=== PATIENT | male | born 1955 | race Caucasian/White ===

== ENCOUNTER → 2016-11-11 | Outpatient (CLI) | payer MEDICARE, OTHER | LOC: US 07:41 | DX: R10.0 Acute abdomen (principal) | CPT/HCPCS: 76705 ==

== ENCOUNTER → 2021-12-17 | Outpatient (CLI) | payer MEDICARE, OTHER | LOC: HEART 5 10:54 | DX: J45.30 Mild persistent asthma, uncomplicated (principal) | CPT/HCPCS: 94010; 95012 ==

== ENCOUNTER → 2021-12-17 | Outpatient (CLI) | payer MEDICARE | LOC: RAD 11:58 | DX: J45.30 Mild persistent asthma, uncomplicated (principal) | CPT/HCPCS: 71046 ==

== ENCOUNTER → 2021-12-18 | Outpatient (CLI) | payer MEDICARE | LOC: KOH-I 08:09 | DX: M25.511 Pain in right shoulder (principal); M25.611 Stiffness of right shoulder, not elsewhere classified; M41.9 Scoliosis, unspecified; M47.26 Other spondylosis with radiculopathy, lumbar region; M48.061 Spinal stenosis, lumbar region without neurogenic claudication; M75.101 Unspecified rotator cuff tear or rupture of right shoulder, not specified as traumatic; S43.431A Superior glenoid labrum lesion of right shoulder, initial encounter; M19.011 Primary osteoarthritis, right shoulder | CPT/HCPCS: 72148; 73221 ==

== ENCOUNTER → 2022-02-26 | Outpatient (CLI) | payer MEDICARE | LOC: KOH-I 15:24 | DX: Z01.818 Encounter for other preprocedural examination (principal); M51.16 Intervertebral disc disorders with radiculopathy, lumbar region; M51.37 Other intervertebral disc degeneration, lumbosacral region; M48.061 Spinal stenosis, lumbar region without neurogenic claudication; M48.07 Spinal stenosis, lumbosacral region | CPT/HCPCS: 72131 ==

== ENCOUNTER → 2022-04-19 | Outpatient (CLI) | payer MEDICARE ==
[~2022-04-19] MED LIST: ADVAIR 250-501 EACH INH; COMBIVENT RESPIM4 GM INH; FISH OIL 1,0001 EAC3 PO; LISINOPRIL20 MG PO; LOW DOSE ASPIRI81 MG PO; MELOXICAM15 MG PO; MEN'S ONE DAIL1 EACH PO; MIRALAX 119 GR119 GM PO; PROTONIX40 MG PO; ZOCOR80 MG PO
[2022-04-19 11:12] LABS: HEMOGLOBIN 13.9 gm/dl (14.0-17.5); RED BLOOD COUNT 4.57 M/UL (4.20-5.50); WHITE BLOOD COUNT 9.5 K/UL (4.5-11.0)
[2022-04-19 11:40] LABS: BUN/CREATININE RATIO 16 (0-10)
== END ==
LOC: EDSTATUS 10:00 → OPSV2 10:00
PROVIDERS: Orthopaedic Surgery
DX: Z01.818 Encounter for other preprocedural examination (principal); M48.061 Spinal stenosis, lumbar region without neurogenic claudication; M51.16 Intervertebral disc disorders with radiculopathy, lumbar region
CPT/HCPCS: 71046; 80048; 81001; 83036; 85025; 85610; 85730; 87081; 93005

== ENCOUNTER → 2022-05-09 | Outpatient (CLI) | payer MEDICARE ==
[~2022-05-09] MED LIST changes: -FISH OIL 1,0001 EAC3 PO; +FISH OIL 500 M1 EAC2 PO; +FOLIC ACID0.4 MG PO; +GLUCOSAMINE CH1 EAC6 PO; +PROVENTIL HFA6.7 GM PO; +STOOL SOFTENER100 MG PO; +SUPER QUINTS1 EACH PO; +VITAMIN D3125 MCG PO
[2022-05-09 14:25] LABS: BUN/CREATININE RATIO 14 (0-10)
== END ==
LOC: LAB 13:42
PROVIDERS: Orthopaedic Surgery
DX: Z01.812 Encounter for preprocedural laboratory examination (principal)
CPT/HCPCS: 36415; 80048; 86850; 86900; 86901

== ENCOUNTER 2022-05-10 05:26 | Inpatient (IN) | payer MEDICARE ==
[~2022-05-10] VITALS: Ht 165.1 cm; Wt 91.2 kg
[2022-05-10 12:37] LABS: HEMOGLOBIN 13.1 gm/dl (14.0-17.5); RED BLOOD COUNT 4.28 M/UL (4.20-5.50); WHITE BLOOD COUNT 16.3 K/UL (4.5-11.0)
[2022-05-10 13:01] LABS: BUN/CREATININE RATIO 15 (0-10)
[2022-05-11 05:06] LABS: HEMOGLOBIN 13.2 gm/dl (14.0-17.5); RED BLOOD COUNT 4.36 M/UL (4.20-5.50); WHITE BLOOD COUNT 17.3 K/UL (4.5-11.0)
[2022-05-11 05:31] LABS: BUN/CREATININE RATIO 17 (0-10)
[2022-05-12 07:21] LABS: RED BLOOD COUNT 4.36 M/UL (4.20-5.50); WHITE BLOOD COUNT 13.9 K/UL (4.5-11.0)
[2022-05-12 07:27] LABS: BUN/CREATININE RATIO 17 (0-10)
[2022-05-12 14:31] LABS: HEMOGLOBIN 11.5 gm/dl (14.0-17.5)
[2022-05-12 14:48] LABS: BUN/CREATININE RATIO 19 (0-10)
[2022-05-12 14:49] LABS: RED BLOOD COUNT 3.79 M/UL (4.20-5.50); WHITE BLOOD COUNT 17.9 K/UL (4.5-11.0)
[2022-05-12 17:13] LABS: BUN/CREATININE RATIO 19 (0-10)
[2022-05-12 17:23] LABS: RED BLOOD COUNT 3.58 M/UL (4.20-5.50); WHITE BLOOD COUNT 16.5 K/UL (4.5-11.0)
[2022-05-13 04:48] LABS: HEMOGLOBIN 9.9 gm/dl (14.0-17.5); RED BLOOD COUNT 3.27 M/UL (4.20-5.50); WHITE BLOOD COUNT 17.6 K/UL (4.5-11.0)
[2022-05-13 06:08] LABS: BUN/CREATININE RATIO 28 (0-10)
[2022-05-14 05:17] LABS: HEMOGLOBIN 8.5 gm/dl (14.0-17.5); WHITE BLOOD COUNT 13.7 K/UL (4.5-11.0)
[2022-05-14 05:21] LABS: RED BLOOD COUNT 2.78 M/UL (4.20-5.50)
[2022-05-14 05:51] LABS: BUN/CREATININE RATIO 26 (0-10)
[2022-05-15 06:20] LABS: WHITE BLOOD COUNT 14.1 K/UL (4.5-11.0)
[2022-05-15 06:25] LABS: RED BLOOD COUNT 3.3 M/UL (4.20-5.50)
[2022-05-15 08:27] LABS: BUN/CREATININE RATIO 28 (0-10)
[2022-05-16 04:19] LABS: HEMOGLOBIN 9.8 gm/dl (14.0-17.5); RED BLOOD COUNT 3.22 M/UL (4.20-5.50); WHITE BLOOD COUNT 14.1 K/UL (4.5-11.0)
[2022-05-16 07:30] LABS: BUN/CREATININE RATIO 22 (0-10)
[2022-05-17 05:07] LABS: HEMOGLOBIN 10.5 gm/dl (14.0-17.5); RED BLOOD COUNT 3.4 M/UL (4.20-5.50); WHITE BLOOD COUNT 14.7 K/UL (4.5-11.0)
[2022-05-17 05:23] LABS: BUN/CREATININE RATIO 22 (0-10)
--- NOTE | 2022-05-18 01:09 | NUR ---
HEMOVAC FOUND PLACED ON BEDSIDE TABLE DISCONNETED FROM TUBING. PATIENT STATED IT HAD POSSIBLY BEEN UNHOOKED AN HOUR. COLLECTION CONTAINER WAS RECONNECTED AND SUCTION REAPPLIED. SCANT AMOUNT OF BLOOD CLOT FOUND ON BED LINEN AND NO FURTHER BLEEDING NOTED. DR SAUNDERS NOTIFIED, UPDATE GIVEN. NO FURTHER ORDERS RECEIVED.
[2022-05-18 04:50] LABS: HEMOGLOBIN 10.2 gm/dl (14.0-17.5); RED BLOOD COUNT 3.36 M/UL (4.20-5.50); WHITE BLOOD COUNT 13.5 K/UL (4.5-11.0)
[2022-05-18 05:08] LABS: BUN/CREATININE RATIO 23 (0-10)
[2022-05-19 04:41] LABS: HEMOGLOBIN 10.1 gm/dl (14.0-17.5); RED BLOOD COUNT 3.45 M/UL (4.20-5.50); WHITE BLOOD COUNT 13.9 K/UL (4.5-11.0)
[2022-05-19 04:52] LABS: BUN/CREATININE RATIO 24 (0-10)
[2022-05-20 02:09] LABS: HEMOGLOBIN 10.4 gm/dl (14.0-17.5); RED BLOOD COUNT 3.43 M/UL (4.20-5.50); WHITE BLOOD COUNT 14.5 K/UL (4.5-11.0)
[2022-05-20 02:22] LABS: BUN/CREATININE RATIO 17 (0-10)
[2022-05-21 02:50] LABS: HEMOGLOBIN 9.8 gm/dl (14.0-17.5); RED BLOOD COUNT 3.29 M/UL (4.20-5.50); WHITE BLOOD COUNT 15.5 K/UL (4.5-11.0)
[2022-05-21 04:09] LABS: BUN/CREATININE RATIO 21 (0-10)
[2022-05-21 16:25] LABS: BUN/CREATININE RATIO 19 (0-10)
== END 2022-05-21 17:45 | DRG 454 ==
LOC: OR 05:26 → CCU 13:40 → PROG CARE 05-19 22:17
PROVIDERS: Internal Medicine; Nurse Practitioner Family; ADMIT Orthopaedic Surgery
PROC: 0SG10A0 Fusion of 2 or more Lumbar Vertebral Joints with Interbody Fusion Device, Anterior Approach, Anterior Column, Open Approach (ICD-10-PCS; 2022-05-10)
PROC: 4A11X4G Monitoring of Peripheral Nervous Electrical Activity, Intraoperative, External Approach (ICD-10-PCS; 2022-05-10)
PROC: 0SG1071 Fusion of 2 or more Lumbar Vertebral Joints with Autologous Tissue Substitute, Posterior Approach, Posterior Column, Open Approach (ICD-10-PCS; 2022-05-12)
PROC: 01NR0ZZ Release Sacral Nerve, Open Approach (ICD-10-PCS; 2022-05-12)
PROC: 01NB0ZZ Release Lumbar Nerve, Open Approach (ICD-10-PCS; 2022-05-12)
PROC: 0SG00AJ Fusion of Lumbar Vertebral Joint with Interbody Fusion Device, Posterior Approach, Anterior Column, Open Approach (ICD-10-PCS; 2022-05-12)
PROC: 0SG3071 Fusion of Lumbosacral Joint with Autologous Tissue Substitute, Posterior Approach, Posterior Column, Open Approach (ICD-10-PCS; 2022-05-12)
PROC: 0SG704Z Fusion of Right Sacroiliac Joint with Internal Fixation Device, Open Approach (ICD-10-PCS; 2022-05-12)
PROC: 0SG804Z Fusion of Left Sacroiliac Joint with Internal Fixation Device, Open Approach (ICD-10-PCS; 2022-05-12)
PROC: 30233N1 Transfusion of Nonautologous Red Blood Cells into Peripheral Vein, Percutaneous Approach (ICD-10-PCS; principal; 2022-05-14)
DX: M51.36 Other intervertebral disc degeneration, lumbar region (principal); D62 Acute posthemorrhagic anemia; N39.0 Urinary tract infection, site not specified; R50.9 Fever, unspecified; I95.1 Orthostatic hypotension; K59.00 Constipation, unspecified; Z98.890 Other specified postprocedural states; D72.829 Elevated white blood cell count, unspecified; Z79.82 Long term (current) use of aspirin; I10 Essential (primary) hypertension; E87.5 Hyperkalemia; K21.9 Gastro-esophageal reflux disease without esophagitis; M48.061 Spinal stenosis, lumbar region without neurogenic claudication; E78.5 Hyperlipidemia, unspecified; Z79.899 Other long term (current) drug therapy; M47.26 Other spondylosis with radiculopathy, lumbar region; M47.27 Other spondylosis with radiculopathy, lumbosacral region
CPT/HCPCS: 36415; 71045; 72100; 72110; 74018; 76000; 80048; 81001; 83540; 83550; 83735; 84100; 85025; 85027; 86850; 86900; 86901; 86920; 87040; 87086; 94640; 94664; 94760; 97116; 97116-GP-CQ; 97161; 97164; 97166; 97168; 97530; 97530-GP-CQ; 97535; C1713; C1762; J0690; J0696; J1100; J1170; J1644; J2001; J2250; J2370; J2405; J2704; J2710; J3010; J3370; J7040; J7050; P9016; P9045; U0002